=== PATIENT | male | born 1985 | race Caucasian/White ===

== ENCOUNTER 2021-01-07 13:39 | Emergency (ER) | payer SELFPAY ==
[~2021-01-07] VITALS: Ht 165.1 cm; Wt 63.5 kg
--- NOTE | 2021-01-07 13:41 | NUR ---
BIBA TAKEN TO BED 12
[2021-01-07 13:42] VITALS: BP 144/95
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
[2021-01-07] MEDS ORDERED: HYDROcodone/APAP 5/325 MG 1 TAB TAB PO ONE (15:00)
[2021-01-07] MEDS ORDERED: IBUP-2230 PO (16:19)
[2021-01-07 16:25] VITALS: BP 144/95
== END 2021-01-07 16:25 | disposition home or self-care (01) ==
LOC: MED 13:39
DX: S09.8XXA Other specified injuries of head, initial encounter (principal); Y04.0XXA Assault by unarmed brawl or fight, initial encounter; Y93.89 Activity, other specified; Y92.89 Other specified places as the place of occurrence of the external cause; Y99.8 Other external cause status; Z02.89 Encounter for other administrative examinations
CPT/HCPCS: 70450; 70486; 99285

== ENCOUNTER 2021-09-03 12:07 | Emergency (ER) | payer SELFPAY ==
[~2021-09-03] VITALS: Ht 165.1 cm; Wt 60.4 kg
[~2021-09-03 12:07] MED LIST: IBUP-2230 PO
[2021-09-03 12:25] VITALS: BP 153/103
[2021-09-03] MEDS ORDERED: KETOROLAC 15 MG/ML VIAL IVP ONE (12:35)
[2021-09-03] MEDS ORDERED: ONDANSETRON 4 MG/2 ML VIAL IVP ONE (12:35)
[2021-09-03] MEDS ORDERED: NACL 0.9% 1,000 ML IV ONE (12:35)
[2021-09-03 13:18] LABS: BASOPHILS % (AUTO) 0.5 % (0.0-2.0); EOSINOPHILS % (AUTO) 0.1 % (0.0-4.0); HEMATOCRIT 40.7 % (36-52); HEMOGLOBIN 14.1 g/dL (12.0-18.0); LYMPHOCYTES # (AUTO) 0.5 K/uL (2.0-11.5); LYMPHOCYTES % (AUTO) 9.3 % (20.5-51.1); MEAN CORPUSCULAR HEMOGLOBIN 34 pg (27-31); MEAN CORPUSCULAR HGB CONC 35 g/dL (33-37); MEAN CORPUSCULAR VOLUME 99.1 fL (80-94); MONOCYTES # (AUTO) 0.5 K/uL (0.8-1.0); MONOCYTES % (AUTO) 9.1 % (1.7-9.3); NEUTROPHILS # (AUTO) 4.1 K/uL (1.8-7.7); PLATELET COUNT (AUTO) 207 K/uL (140-450); RED BLOOD CELL COUNT(AUTO) 4.11 MIL/uL (4.20-6.10); RED CELL DISTRIBUTION WIDTH 12.9 % (11.6-13.7)
[2021-09-03 13:34] LABS: ALBUMIN 4.3 g/dL (3.4-5.0); ANION GAP 12.2 (8-16); CREATININE 0.7 mg/dL (0.6-1.3); POTASSIUM 3.2 mmol/L (3.5-5.1)
[2021-09-03] MEDS ORDERED: OMEP40EC23 PO (14:25)
[2021-09-03 14:39] VITALS: BP 130/79
== END 2021-09-03 14:39 | disposition home or self-care (01) ==
LOC: MED 12:07
DX: R10.13 Epigastric pain (principal); R11.10 Vomiting, unspecified
CPT/HCPCS: 36415; 71045; 80053; 83690; 84484; 85025; 93005; 96361; 96374; 96375; 99285; J1885; J2405; J7030; Q0092

== ENCOUNTER 2022-08-11 18:21 | Emergency (ER) | payer SELFPAY ==
[~2022-08-11] VITALS: Ht 172.7 cm; Wt 70.3 kg
[~2022-08-11 18:21] MED LIST changes: +OMEP40EC23 PO
--- NOTE | 2022-08-11 18:21 | NUR ---
[facility] TO ER BED 3
[2022-08-11] MEDS ORDERED: LORazepam 2 MG/ML VIAL ONE (18:29)
[2022-08-11] MEDS ORDERED: HALOPERIDOL IM 5 MG/ML VIAL ONE (18:29)
[2022-08-11] MEDS ORDERED: LORazepam 2 MG/ML VIAL IM ONE (18:30)
[2022-08-11] MEDS ORDERED: HALOPERIDOL IM 5 MG/ML VIAL IM ONE (18:30)
[2022-08-11 18:34] VITALS: BP 145/77
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
--- NOTE | 2022-08-11 18:39 | NUR ---
MEDICATED PER ORDER PENDING CT
--- NOTE | 2022-08-11 19:32 | NUR ---
PT TAKEN TO CT
--- NOTE | 2022-08-11 19:50 | NUR ---
Pt resting, eyes closed, NAD. [place] [employer] bedside. Pt received in 4 point restraints.
[2022-08-11] MEDS ORDERED: BACITRACIN OINT 500 UNITS/GM PKT TP ONE (20:05)
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
[2022-08-12 05:49] VITALS: BP 136/80
== END 2022-08-12 05:51 | disposition home or self-care (01) ==
LOC: MED 18:21
DX: F10.129 Alcohol abuse with intoxication, unspecified (principal); Y90.9 Presence of alcohol in blood, level not specified
CPT/HCPCS: 70450; 90471; 90715; 96372; 99285; J1630; J2060

== ENCOUNTER 2022-10-06 14:22 | Emergency (ER) | payer SELFPAY ==
--- NOTE | 2022-10-06 14:35 | NUR ---
PATIENT LEFT WITHOUT BEING SEEN BY DR. ADAMS. NO FURTHER CARE PROVIDED FOR PATIENT.
== END 2022-10-06 14:35 | disposition left against medical advice (07) ==
LOC: MED 14:22
DX: R51.9 Headache, unspecified (principal); Z53.21 Procedure and treatment not carried out due to patient leaving prior to being seen by health care provider

== ENCOUNTER 2023-03-16 14:03 | Emergency (ER) | payer SELFPAY ==
[~2023-03-16] VITALS: Ht 165.1 cm; Wt 68.0 kg
[2023-03-16 14:13] VITALS: BP 153/90
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
[2023-03-16] MEDS ORDERED: MORPHINE SULFATE 4 MG/ML SYR IVP ONE (14:25)
--- NOTE | 2023-03-16 14:33 | NUR ---
SEEN BY MARCIE
[2023-03-16] MEDS ORDERED: LIDOCAINE 1% 500 MG/ 50 ML VIAL INJ ONE (14:45)
[2023-03-16 14:51] LABS: BASOPHILS % (AUTO) 0.3 % (0.0-2.0); EOSINOPHILS % (AUTO) 0.2 % (0.0-4.0); HEMATOCRIT 40.9 % (36-52); HEMOGLOBIN 14.1 g/dL (12.0-18.0); LYMPHOCYTES # (AUTO) 0.7 K/uL (2.0-11.5); LYMPHOCYTES % (AUTO) 6.1 % (20.5-51.1); MEAN CORPUSCULAR HEMOGLOBIN 32 pg (27-31); MEAN CORPUSCULAR HGB CONC 35 g/dL (33-37); MEAN CORPUSCULAR VOLUME 93.1 fL (80-94); MONOCYTES # (AUTO) 0.6 K/uL (0.8-1.0); MONOCYTES % (AUTO) 4.7 % (1.7-9.3); NEUTROPHILS # (AUTO) 10.7 K/uL (1.8-7.7); NEUTROPHILS % (AUTO) 88.7 % (42.2-75.2); PLATELET COUNT (AUTO) 239 K/uL (140-450); RED BLOOD CELL COUNT(AUTO) 4.39 MIL/uL (4.20-6.10); RED CELL DISTRIBUTION WIDTH 12.5 % (11.6-13.7)
[2023-03-16 15:05] LABS: ANION GAP 13.3 (8-16); CARBON DIOXIDE 25.2 mmol/L (21-32); POTASSIUM 3.5 mmol/L (3.5-5.1)
[2023-03-16] MEDS ORDERED: MORPHINE SULFATE 4 MG/ML SYR ONE (16:35)
[2023-03-16] MEDS ORDERED: MORPHINE SULFATE 4 MG/ML SYR IM ONE (16:35)
[2023-03-16] MEDS ORDERED: LIDOCAINE MPF 1% 0 ML ONE (16:36)
[2023-03-16] MEDS ORDERED: IBUP-2230 PO (16:59)
[2023-03-16] MEDS ORDERED: HYDR-5080 PO (17:00)
[2023-03-16 17:58] VITALS: BP 153/90
--- NOTE | 2023-03-16 17:59 | NUR ---
Patient discharged with v/s stable. Written and verbal after care instructions given and explained. RODRÍGUEZ ARMANDO PROVIDED Patient alert, oriented and verbalized understanding of instructions. Ambulatory with steady gait. All questions addressed prior to discharge. ID band removed. Patient advised to follow up with PMD. Rx of ORCO, IBUPROFEN given. Patient educated on indication of medication including possible reaction and side effects. Opportunity to ask questions provided and answered.
== END 2023-03-16 17:59 | disposition home or self-care (01) ==
LOC: MED 14:03
DX: S01.511A Laceration without foreign body of lip, initial encounter (principal); Y04.0XXA Assault by unarmed brawl or fight, initial encounter; Y93.89 Activity, other specified; Y92.89 Other specified places as the place of occurrence of the external cause; Y99.8 Other external cause status
CPT/HCPCS: 12011; 36415; 70450; 70486; 72125; 73030; 73080; 80048; 85025; 90471; 90715; 96372; 99285; G0482; J2001; J2270

== ENCOUNTER 2023-03-24 12:40 | Emergency (ER) | payer OTHER ==
[~2023-03-24] VITALS: Ht 165.1 cm; Wt 64.0 kg
[~2023-03-24 12:40] MED LIST changes: +HYDR-5080 PO
--- NOTE | 2023-03-24 12:52 | NUR ---
PT AMBULATED TO BED 05
--- NOTE | 2023-03-24 12:53 | NUR ---
SUTURE REMOVAL KIT AT BEDSIDE
[2023-03-24 12:54] VITALS: BP 120/104
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
[2023-03-24] MEDS ORDERED: BACI-416 TP (13:34)
--- NOTE | 2023-03-24 13:43 | NUR ---
Patient discharged with v/s stable. Written and verbal after care instructions given and explained. Patient alert, oriented and verbalized understanding of instructions. Ambulatory with steady gait. All questions addressed prior to discharge. ID band removed. Patient advised to follow up with PMD. Rx of BACITRACIN OINT given. Opportunity to ask questions provided and answered.
--- NOTE | 2023-03-24 15:03 | NUR ---
The patient's care was reviewed and supervised by ED Agency Nurse 8, RN, RN.
== END 2023-03-24 13:43 | disposition home or self-care (01) ==
LOC: MED 12:40
DX: S01.511D Laceration without foreign body of lip, subsequent encounter (principal); X58.XXXD Exposure to other specified factors, subsequent encounter; Z79.899 Other long term (current) drug therapy
CPT/HCPCS: 99282

== ENCOUNTER 2024-05-22 16:29 | Emergency (ER) | payer OTHER ==
[~2024-05-22] VITALS: Ht 160 cm; Wt 72.6 kg
[~2024-05-22 16:29] MED LIST changes: +BACI-418 TP
[2024-05-22 16:38] VITALS: BP 127/76; PULSE 102; RESP 16; TEMP 98.2; O2SAT 97
[2024-05-22 17:00] LABS: BASOPHILS % (AUTO) 0.8 % (0.0-2.0); HEMATOCRIT 43.7 % (36-52); HEMOGLOBIN 14.7 g/dL (12.0-18.0); LYMPHOCYTES # (AUTO) 1.1 K/uL (2.0-11.5); LYMPHOCYTES % (AUTO) 25.4 % (20.5-51.1); MEAN CORPUSCULAR HEMOGLOBIN 34 pg (27-31); MEAN CORPUSCULAR HGB CONC 34 g/dL (33-37); MEAN CORPUSCULAR VOLUME 100.8 fL (80-94); MONOCYTES # (AUTO) 0.4 K/uL (0.8-1.0); MONOCYTES % (AUTO) 8.6 % (1.7-9.3); NEUTROPHILS # (AUTO) 2.7 K/uL (1.8-7.7); NEUTROPHILS % (AUTO) 64.2 % (42.2-75.2); PLATELET COUNT (AUTO) 190 K/uL (140-450); RED BLOOD CELL COUNT(AUTO) 4.33 MIL/uL (4.20-6.10); RED CELL DISTRIBUTION WIDTH 14.2 % (11.6-13.7); WHITE BLOOD COUNT (AUTO) 4.2 K/uL (4.8-10.8)
[2024-05-22] MEDS: NACL 0.9% 1,000 ML IV ONE (17:04)
[2024-05-22] MEDS: FAMOTIDINE 20 MG/2 ML VIAL IVP ONE (17:11)
[2024-05-22] MEDS: ONDANSETRON 4 MG/2 ML VIAL IVP ONE (17:11)
[2024-05-22 17:17] VITALS: O2SAT 98
[2024-05-22 17:25] LABS: CARBON DIOXIDE 23.9 mmol/L (21-32); CREATININE 0.8 mg/dL (0.6-1.3); POTASSIUM 3.9 mmol/L (3.5-5.1)
[2024-05-22 17:29] LABS: ALANINE AMINOTRANSFERASE 125 U/L (12-78); ALBUMIN 4.3 g/dL (3.4-5.0); ALKALINE PHOSPHATASE 108 U/L (50-136); ASPARTATE AMINOTRANSFERASE 149 U/L (15-37); BILIRUBIN,DIRECT 0.1 mg/dL (0.0-0.3); LIPASE 100 U/L (16-77); TOTAL BILIRUBIN 0.5 mg/dL (0.0-1.0); TOTAL PROTEIN, SERUM 7.8 g/dL (6.4-8.2)
[2024-05-22] MEDS: ALUMINUM HYD/MAG/SIMETHICONE 30 ML UDC PO ONE (17:35)
[2024-05-22] MEDS ORDERED: FAMO-90 PO (17:35)
[2024-05-22 18:38] VITALS: BP 127/76; PULSE 102; RESP 16; TEMP 98.2; O2SAT 98
== END 2024-05-22 18:38 | disposition home or self-care (01) ==
LOC: MED 16:29
DX: F10.129 Alcohol abuse with intoxication, unspecified (principal); Y90.9 Presence of alcohol in blood, level not specified; Z79.1 Long term (current) use of non-steroidal anti-inflammatories (NSAID); Z79.899 Other long term (current) drug therapy; Z59.00 Homelessness unspecified
CPT/HCPCS: 36415; 71045; 80048; 80076; 83690; 84484; 85025; 93005; 96361; 96374; 96375; 99285; J2405; J3490; J7030; Q0092